=== PATIENT | female | born 1960 | race African-American/Black ===

== ENCOUNTER 2017-10-09 08:39 | Emergency (ER) | payer MEDICAID ==
[2017-10-09] MEDS ORDERED: ASPIRIN 81 MG TABLET, CHEWABLE PO ONE (09:32)
[2017-10-09 09:57] LABS: ABSOLUTE MONOCYTES (AUTO) 0.7 10^3/uL (0.1-1.4); ABSOLUTE NEUT (AUTO) 7.3 10^3/uL (1.7-8.2); BASOPHILS % (AUTO) 0.4 % (0-2); EOSINOPHILS % (AUTO) 0.3 % (0-6); HEMATOCRIT 45.3 % (36.0-47.0); HEMOGLOBIN 15.6 g/dL (12.0-15.5); LYMPHOCYTES % (AUTO) 20.3 % (13-45); MEAN CORPUSCULAR HEMOGLOBIN 32.5 pg (27.0-33.4); MEAN CORPUSCULAR HGB CONC 34.5 g/dL (32.0-36.0); MEAN CORPUSCULAR VOLUME 94 fl (80-97); MONOCYTES % (AUTO) 6.6 % (3-13); PLATELET COUNT 416 10^3/uL (150-450); RED CELL DISTRIBUTION WIDTH 14.3 % (11.5-14.0); SEGMENTED NEUTROPHILS % (AUTO) 72.4 % (42-78); TOTAL CELLS COUNTED % (AUTO) 100 %; WHITE BLOOD COUNT 10.1 10^3/uL (4.0-10.5)
[2017-10-09 10:00] LABS: ALANINE AMINOTRANSFERASE 33 U/L (9-52); ALKALINE PHOSPHATASE 120 U/L (38-126); ASPARTATE AMINO TRANSFERASE 37 U/L (14-36); BILIRUBIN,DIRECT 0.5 mg/dL (0.0-0.4); BILIRUBIN,TOTAL 0.6 mg/dL (0.2-1.3); BLOOD UREA NITROGEN 21 mg/dL (7-20); CALCIUM 10.6 mg/dL (8.4-10.2); CHLORIDE 99 mmol/L (98-107); CREATINE KINASE 118 U/L (30-135); GLUCOSE 81 mg/dL (75-110); POTASSIUM 4.7 mmol/L (3.6-5.0)
[2017-10-09 10:12] LABS: CREATINE KINASE MB 1.53 ng/mL (<4.55)
[2017-10-09 10:13] LABS: ANION GAP 19 (5-19); CARBON DIOXIDE 21 mmol/L (22-30); SODIUM 138.6 mmol/L (137-145)
--- NOTE | 2017-10-09 10:13 | RADIOLOGY REPORT (SQ) ---
EXAM DESCRIPTION: CHEST SINGLE VIEW COMPLETED DATE/TIME: 10/09/2017 9:55 am REASON FOR STUDY: Chest pain COMPARISON: None. EXAM PARAMETERS: NUMBER OF VIEWS: One view. TECHNIQUE: Single frontal radiographic view of the chest acquired. RADIATION DOSE: NA LIMITATIONS: None. FINDINGS: LUNGS AND PLEURA: No opacities, masses or pneumothorax. No pleural effusion. MEDIASTINUM AND HILAR STRUCTURES: No masses. Contour normal. HEART AND VASCULAR STRUCTURES: Heart normal in size. Normal vasculature. BONES: No acute findings. HARDWARE: None in the chest. OTHER: No other significant finding. IMPRESSION: NO ACUTE RADIOGRAPHIC FINDING IN THE CHEST. TECHNICAL DOCUMENTATION: JOB ID: [id number]- All Rights Reserved Reading location - IP/workstation name: [email or web address]
[2017-10-09 10:14] LABS: TROPONIN I < 0.012 ng/mL
--- NOTE | 2017-10-09 11:16 | ER Document Report ---
ED General - General Chief Complaint: Chest Pain Stated Complaint: CHEST PAIN Time Seen by Provider: 10/09/17 09:31 Mode of Arrival: Ambulatory Information source: Patient Notes: History of complain-56 years old female with a history of bipolar disorder presents today with pain over the right side of the neck left side of the upper chest wall and left lower sternocostal region. Been out for the last 2 days got worse this morning. No diaphoresis. Denies any palpitation. Denies any nausea vomiting left arm numbness or tingling sensation. Denies any constitutional symptoms REVIEW OF SYSTEMS: CONSTITUTIONAL : Denies fever, chills, or sweats. Denies recent illness. EENT: Denies eye, ear, throat, or mouth pain or symptoms. Denies nasal or sinus congestion or discharge. Denies throat, tongue, or mouth swelling or difficulty swallowing. CARDIOVASCULAR: . Denies palpitations or racing or irregular heart beat. Denies ankle edema. RESPIRATORY: Denies cough, cold, or chest congestion. Denies shortness of breath, difficulty breathing, or wheezing. GASTROINTESTINAL: Denies abdominal pain or distention. Denies nausea, vomiting , or diarrhea. Denies blood in vomitus, stools, or per rectum. Denies black, tarry stools. Denies constipation. GENITOURINARY: Denies difficulty urinating, painful urination, burning, frequency, blood in urine, or discharge. FEMALE GENITOURINARY: Denies vaginal bleeding, heavy or abnormal periods, irregular periods. Denies vaginal discharge or odor. MUSCULOSKELETAL: Denies back or neck pain or stiffness. Denies joint pain or swelling. SKIN: Denies rash, lesions or sores. HEMATOLOGIC : Denies easy bruising or bleeding. LYMPHATIC: Denies swollen, enlarged glands. NEUROLOGICAL: Denies confusion or altered mental status. Denies passing out or loss of consciousness. Denies dizziness or lightheadedness. Denies headache. Denies weakness or paralysis or loss of use of either side. Denies problems with gait or speech. Denies sensory loss, numbness, or tingling. Denies seizures. PSYCHIATRIC: Denies anxiety or stress. Denies depression, suicidal ideation, or homicidal ideation. ALL OTHER SYSTEMS REVIEWED AND NEGATIVE. PHYSICAL EXAMINATION: GENERAL: Well-appearing, well-nourished and in no acute distress. Appears anxious HEAD: Atraumatic, normocephalic. EYES: Pupils equal round and reactive to light, extraocular movements intact, conjunctiva are normal. ENT: Nares patent, oropharynx clear without exudates. Moist mucous membranes. NECK: Normal range of motion, supple without lymphadenopathy Right paraspinal muscular tenderness noted. LUNGS: Breath sounds clear to auscultation bilaterally and equal. No wheezes rales or rhonchi. HEART: Regular rate and rhythm without murmurs Chest wall-sharp chest wall tenderness noted over the sternocostal region ABDOMEN: Soft, nontender, nondistended abdomen. No guarding, no rebound. No masses appreciated. Female : deferred Musculoskeletal: Normal range of motion, no pitting or edema. No cyanosis. NEUROLOGICAL: Cranial nerves grossly intact. Normal speech, normal gait. Normal sensory, motor exams PSYCH: Normal mood, normal affect. SKIN: Warm, Dry, normal turgor, no rashes or lesions noted. Dictation was performed using [email or web address] voice recognition software TRAVEL OUTSIDE OF THE [place] IN LAST 30 DAYS: No - HPI Onset: Just prior to arrival - Related Data Allergies/Adverse Reactions: No Known Allergies Allergy (Unverified 10/09/17 08:54) Past Medical History - General Information source: Patient - Social History Smoking Status: Current Every Day Smoker Chew tobacco use (# tins/day): No Frequency of alcohol use: Occasional Lives with: Family Family History: Reviewed & Not Pertinent Patient has suicidal ideation: No Patient has homicidal ideation: No - Past Medical History Cardiac Medical History: Denies: None, Hx Atrial Fibrillation, Hx Congestive Heart Failure, Hx Coronary Artery Disease, Hx DVT, Hx Heart Attack, Hx Hypercholesterolemia, Hx Hypertension, Hx Peripheral Vascular Disease, Hx Pulmonary Embolism, Hx Heart Murmur, Other Pulmonary Medical History: Denies: None, Hx Asthma, Hx Bronchitis, Hx COPD, Hx Pneumonia, Hx Intubation , Hx Respiratory Failure, Hx Sleep Apnea, Hx Tuberculosis, Other Neurological Medical History: Denies: None, Hx Cerebrovascular Accident, Hx Migraine, Hx Seizures, Other Renal/ Medical History: Denies: Hx Peritoneal Dialysis Musculoskeltal Medical History: Reports Hx Arthritis Psychiatric Medical History: Reports: Hx Bipolar Disorder Review of Systems - Review of Systems Constitutional: denies: No symptoms reported, See HPI, Chills, Diaphoresis, Fever, Malaise, Weakness, Other, Weight gain, Weight loss, Recent illness EENT: denies: No symptoms reported, See HPI, Eye pain, Eye discharge, Blurred vision, Tearing, Double vision, Ear pain, Ear discharge, Nose pain, Nose congestion, Nose discharge, Sinus pressure, Sinus discharge, Throat pain, Difficulty swallowing, Throat swelling, Mouth pain, Mouth swelling, Dental problem, Vertigo, Other Cardiovascular: See HPI Respiratory: denies: No symptoms reported, See HPI, Cough, Hurts to breathe, Hemoptysis, Short of breath, Sputum, Stridor, Wheezing, Other Gastrointestinal: denies: No symptoms reported, See HPI, Abdomen distended, Abdominal pain, Diarrhea, Nausea, Vomiting, Constipation, Blood streaked bowels , Poor appetite, Poor fluid intake, Blood in vomit, Black stools, Rectal bleeding, Last bowel movement, Fecal incontinence, Other Genitourinary: denies: No symptoms reported, See HPI, Burning, Dysuria, Discharge, Frequency, Flank pain, Hematuria, Incontinence, Pain, Urgency, Retention, Other Female Genitourinary: denies: No symptoms reported, See HPI, Last menstrual period, , Post menopausal, Heavy/abnormal periods, Irregular period, Vaginal bleeding, Vaginal discharge, Vaginal odor, Painful intercourse, Other Musculoskeletal: See HPI Skin: denies: No symptoms reported, See HPI, Change in color, Change in hair/ nails, Dryness, Lesions, Lumps, Rash, Other Neurological/Psychological: denies: No symptoms reported, See HPI, Confusion, Dementia, Depression, Hallucinations, Anxiety, Homicidal ideation, Sensory change, Weakness, Gait changes, Loss of power, Paralysis, Seizure, Lost consciousness, Headaches, Speech impairment, Numbness, Suicidal ideation, Tingling, Tremor, Other Physical Exam - Vital signs Vitals: Temp Pulse Resp BP Pulse Ox 98.1 F 94 20 121/78 97 10/09/17 08:43 10/09/17 08:43 10/09/17 08:43 10/09/17 08:43 10/09/17 08:43 Course - Vital Signs Vital signs: Temp Pulse Resp BP Pulse Ox 98.1 F 94 20 121/78 98 10/09/17 08:43 10/09/17 08:43 10/09/17 08:43 10/09/17 08:43 10/09/17 09:32 - Laboratory Result Diagrams: 10/09/17 09:05 10/09/17 09:05 Laboratory results interpreted by me: 10/09/17 10/09/17 09:05 09:05 Hgb 15.6 H RDW 14.3 H Carbon Dioxide 21 L BUN 21 H Calcium 10.6 H Direct Bilirubin 0.5 H AST 37 H Total Protein 9.0 H - Diagnostic Test Radiology results interpreted by me: 10/09/17 11:16 Chest x-ray reported by radiologist as normal no acute finding - EKG Interpretation by Me EKG shows normal: Sinus rhythm Rate: Normal Rhythm: NSR Discharge - Discharge Clinical Impression: Chest wall pain, Bipolar disorder Strain of sternocleidomastoid muscle Qualifiers: Encounter type: initial encounter Qualified Code(s): S16.1XXA - Strain of muscle, fascia and tendon at neck level, initial encounter Condition: Fair Disposition: HOME, SELF-CARE Instructions: Chest Pain of Unclear Cause ([facility]), Chest Wall Pain ([facility]) Prescriptions: Hydrocodone/Acetaminophen [Vicodin 5-300 mg Tablet] 1 each PO Q6HP PRN #14 tablet PRN Reason:
[2017-10-09 11:38] VITALS: BP 109/82
--- NOTE | 2017-10-09 12:53 | EKG REPORT ---
SEVERITY:- NORMAL ECG - SINUS RHYTHM : Confirmed by: Erasmo Maldonado MD 09-Oct-2017 12:52:58
--- NOTE | 2017-10-09 12:54 | EKG REPORT ---
SEVERITY:- ABNORMAL ECG - SINUS RHYTHM ST ELEVATION LIKELY NORMAL VARIANT, CLINICAL CORRELATION NEEDED. : Confirmed by: Erasmo Maldonado MD 09-Oct-2017 12:53:30
== END 2017-10-09 11:39 | disposition home or self-care (01) ==
LOC: ER 08:39
DX: S16.1XXA Strain of muscle, fascia and tendon at neck level, initial encounter (principal); X58.XXXA Exposure to other specified factors, initial encounter; R07.89 Other chest pain; M54.2 Cervicalgia; F17.200 Nicotine dependence, unspecified, uncomplicated; F31.9 Bipolar disorder, unspecified
CPT/HCPCS: 36415; 71045; 80053; 82550; 82553; 84484; 85025; 93005; 93010; 99285

== ENCOUNTER 2017-12-08 18:26 | Emergency (ER) | payer MEDICAID | END 2017-12-08 18:35 | disposition left against medical advice (07) | LOC: ER 18:26 | DX: Z53.21 Procedure and treatment not carried out due to patient leaving prior to being seen by health care provider (principal) ==

== ENCOUNTER 2017-12-20 08:28 | Emergency (ER) | payer MEDICAID ==
[2017-12-20] MEDS ORDERED: DIPHENHYDRAMINE HCL 50 MG CAPSULE PO ONE (10:19)
[2017-12-20] MEDS ORDERED: METOCLOPRAMIDE HCL 10 MG TABLET PO ONE (10:19)
[2017-12-20] MEDS ORDERED: KETOROLAC TROMETHAMINE 60 MG/2 ML SDV IM ONE (10:19)
--- NOTE | 2017-12-20 10:23 | ER Document Report ---
ED General - General Chief Complaint: Headache Stated Complaint: HEADACHE Mode of Arrival: Ambulatory Information source: Patient Notes: 57-year-old female with schizophrenia presents with complaint of left-sided neck pain, headache and rash around her eyes. Patient states that she awoke this morning with her headache that she describes as a throbbing pain. She states that her neck also began hurting today and describes it as a sharp pain without radiation. She denies any injury. Patient noticed some mild erythema under her left eye that she describes as itching. She denies any new lotions or makeup. She denies any recent illness. TRAVEL OUTSIDE OF THE [place] IN LAST 30 DAYS: No - HPI Onset: This morning Onset/Duration: Gradual, Persistent Quality of pain: Stabbing, Throbbing Severity: Mild Associated symptoms: None Exacerbated by: Movement Relieved by: Remaining still Similar symptoms previously: No Recently seen / treated by doctor: No - Related Data Allergies/Adverse Reactions: No Known Allergies Allergy (Verified 12/20/17 08:30) Past Medical History - General Information source: Patient, [facility] Records - Social History Smoking Status: Current Every Day Smoker Cigarette use (# per day): Yes - 15 Chew tobacco use (# tins/day): No Smoking Education Provided: Yes - Patient counselled regarding cessation for 4 minutes Frequency of alcohol use: None Drug Abuse: None Lives with: Spouse/Significant other Family History: Reviewed & Not Pertinent Patient has suicidal ideation: No Patient has homicidal ideation: No - Past Medical History Cardiac Medical History: Denies: Hx Atrial Fibrillation, Hx Congestive Heart Failure, Hx Coronary Artery Disease, Hx DVT, Hx Heart Attack, Hx Hypercholesterolemia, Hx Hypertension, Hx Peripheral Vascular Disease, Hx Pulmonary Embolism, Hx Heart Murmur Pulmonary Medical History: Denies: Hx Asthma, Hx Bronchitis, Hx COPD, Hx Pneumonia, Hx Intubation, Hx Respiratory Failure, Hx Sleep Apnea, Hx Tuberculosis Neurological Medical History: Denies: Hx Cerebrovascular Accident, Hx Migraine, Hx Seizures Renal/ Medical History: Denies: Hx Peritoneal Dialysis Musculoskeltal Medical History: Reports Hx Arthritis Psychiatric Medical History: Reports: Hx Bipolar Disorder Past Surgical History: Reports: Hx Section Review of Systems - Review of Systems Notes: REVIEW OF SYSTEMS: CONSTITUTIONAL : Denies fever, chills, or sweats. Denies recent illness. Denies weight loss, recent hospitalizations. EENT: Denies visual changes, eye pain. Denies nasal or sinus congestion or discharge. Denies sore throat, oral lesions, difficulty swallowing. CARDIOVASCULAR: Denies chest pain. Denies palpitations. Denies lower extremity edema. RESPIRATORY: Denies cough, cold, or chest congestion. Denies shortness of breath, wheezing. GASTROINTESTINAL: Denies abdominal pain or distention. Denies nausea, vomiting , or diarrhea. Denies blood in vomitus, stools, or per rectum. Denies black, tarry stools. Denies constipation. GENITOURINARY: Denies difficulty urinating, painful urination, frequency, blood in urine, or vaginal discharge. MUSCULOSKELETAL: Denies back pain or stiffness. Denies joint pain or swelling. SKIN: Denies lesions or sores. HEMATOLOGIC : Denies easy bruising or bleeding. LYMPHATIC: Denies swollen glands. NEUROLOGICAL: Denies confusion or altered mental status. Denies passing out or loss of consciousness. Denies dizziness or lightheadedness. Denies weakness or paralysis. Denies problems difficulty with ambulation, slurred speech. Denies sensory loss, numbness, or tingling. Denies seizures. PSYCHIATRIC: Denies anxiety or stress. Denies depression, suicidal ideation, or homicidal ideation. Denies visual or auditory hallucinations. Physical Exam - Vital signs Vitals: Temp Pulse Resp BP Pulse Ox 98.9 F 74 16 117/79 97 12/20/17 08:44 12/20/17 08:44 12/20/17 08:44 12/20/17 08:44 12/20/17 08:44 - Notes Notes: PHYSICAL EXAMINATION: GENERAL: Well-appearing, well-nourished and in no acute distress. HEAD: Atraumatic, normocephalic. EYES: Pupils equal round and reactive to light, extraocular movements intact, conjunctiva are normal. No pain with extraocular movements. Mild erythema under the left eyelid. ENT: Nares patent, oropharynx clear without exudates. Moist mucous membranes. NECK: Normal range of motion, supple without lymphadenopathy LUNGS: Breath sounds clear to auscultation bilaterally and equal. No wheezes rales or rhonchi. HEART: Regular rate and rhythm without murmurs ABDOMEN: Soft, nontender, nondistended abdomen. No guarding, no rebound. No masses appreciated. Female : deferred Musculoskeletal: Normal range of motion, no pitting or edema. No cyanosis. Tender to palpation along the left paraspinal musculature of the cervical spine. Increased muscle tonicity along the left trapezius. NEUROLOGICAL: Cranial nerves grossly intact. Normal speech, normal gait. Normal sensory, motor exams PSYCH: Normal mood, normal affect. SKIN: Warm, Dry, mild erythema under the left eyelid. Nontender. Course - Re-evaluation Re-evalutation: 12/20/17 10:27 57-year-old female presents with complaint of neck pain, headache and a rash under her left eye that she noticed this morning. Upon arrival vitals were reviewed. Patient does not appear toxic or dehydrated. She is in no acute distress. Exam is significant for mild erythema under the left eye that is not consistent with facial cellulitis. She also has some pain along the left trapezius and left paraspinal musculature of the cervical spine. Patient declining IV. Patient was given Reglan, Benadryl and Toradol during her ED course. She will be discharged home with Motrin and Flexeril. Patient provided the opportunity to ask questions, and express concerns. Discharge instructions discussed. Patient is agreeable with discharge home. Return indications explained and discussed with the patient who displays understanding. Patient encouraged to return to the emergency department immediately with any concerns. - Vital Signs Vital signs: Temp Pulse Resp BP Pulse Ox 98.9 F 74 16 117/79 97 12/20/17 08:44 12/20/17 09:00 12/20/17 09:00 12/20/17 09:00 12/20/17 09:00 Discharge - Discharge Clinical Impression: Rash and nonspecific skin eruption Headache Qualifiers: Headache type: unspecified Headache chronicity pattern: acute headache Intractability: not intractable Qualified Code(s): R51 - Headache Cervical strain, acute Qualifiers: Encounter type: initial encounter Qualified Code(s): S16.1XXA - Strain of muscle, fascia and tendon at neck level, initial encounter Condition: Good Disposition: HOME, SELF-CARE Instructions: Antinausea Medication ([facility]), Headache ([facility]), Neck Injury ( Cervical Strain) ([facility]), Pain Medication Injection ([facility]), Toradol Injection ([facility]) Additional Instructions: Follow up with your physician tomorrow for further care or return to the ED IMMEDIATELY if symptoms worsen or new concerns occur. If you cannot afford to follow up with your primary care physician a list of low cost clinics have been provided at the end of your discharge papers as well. Prescriptions: Ibuprofen [Motrin 600 mg Tablet] 600 mg PO Q8HP PRN #21 tablet PRN Reason: Cyclobenzaprine HCl [Flexeril 10 mg Tablet] 10 mg PO TIDP PRN #15 tab PRN Reason:
[2017-12-20 10:32] VITALS: BP 132/91
== END 2017-12-20 10:38 | disposition home or self-care (01) ==
LOC: ER 08:28
DX: R51 Headache (principal); S16.1XXA Strain of muscle, fascia and tendon at neck level, initial encounter; X58.XXXA Exposure to other specified factors, initial encounter; M54.2 Cervicalgia; R21 Rash and other nonspecific skin eruption; L29.8 Other pruritus; F17.210 Nicotine dependence, cigarettes, uncomplicated; Z71.6 Tobacco abuse counseling
CPT/HCPCS: 99406; 99284; 96372; J3490 ×2; J1885

== ENCOUNTER 2018-06-04 09:32 | Emergency (ER) | payer MEDICAID ==
[2018-06-04 09:39] VITALS: BP 124/82
--- NOTE | 2018-06-04 10:23 | ER Document Report ---
Addendum entered and electronically signed by GABE GARCIA NP 06/04/18 11:42: Course - Re-evaluation Re-evalutation: 06/04/18 11:41 Patient is concerned that she still needs an oral antibiotic, consulted with Dr. Mike Callejas who agrees to examined patient. Dr. Callejas to bedside, does not recommend any oral antibiotics at this time. Agrees with discharge plan of care. - Vital Signs Vital signs: Temp Pulse Resp BP Pulse Ox 98.5 F 76 16 124/82 99 06/04/18 09:38 06/04/18 09:38 06/04/18 09:38 06/04/18 09:38 06/04/18 09:38 Original Note: ED Breast Problem - General Chief Complaint: Breast Problem Stated Complaint: BREAST PAIN Time Seen by Provider: 06/04/18 10:08 Mode of Arrival: Ambulatory Information source: Patient Notes: Patient presents complaining of nipple tingling and discomfort to bilateral breast for the past 3 days. Patient does complain of some discomfort to the nipple area. Patient denies any trauma or fever. Patient denies any nipple discharge. Patient denies any previous history of breast cancer. Last mammogram was 2 years ago. Patient denies any cough or chest pain. TRAVEL OUTSIDE OF THE [place] IN LAST 30 DAYS: No - HPI Patient complains to provider of: Tenderness, Other - Tingling sensation to nipples Onset: Other - 3 days Onset/Duration: Persistent Quality of pain: Other - Tingling Pain Level: 2 Associated Symptoms: denies: Chest pain, Chills, Nonproductive cough, Productive cough, Fever, Headache, Nausea, Vomiting, Sweating Similar symptoms previously: Yes - 1 year ago Recently seen / treated by doctor: No - Related Data Allergies/Adverse Reactions: No Known Allergies Allergy (Verified 06/04/18 09:35) Past Medical History - General Information source: Patient - Social History Smoking Status: Current Every Day Smoker Smoking Education Provided: Yes Frequency of alcohol use: None Drug Abuse: None Occupation: none Lives with: Family Family History: Reviewed & Not Pertinent Renal/ Medical History: Denies: Hx Peritoneal Dialysis Musculoskeletal Medical History: Reports Hx Arthritis Psychiatric Medical History: Reports: Hx Bipolar Disorder Past Surgical History: Reports: Hx Section Review of Systems - Review of Systems Constitutional: No symptoms reported. denies: Fever, Recent illness EENT: No symptoms reported Cardiovascular: No symptoms reported Respiratory: No symptoms reported Gastrointestinal: No symptoms reported Genitourinary: No symptoms reported Female Genitourinary: No symptoms reported Musculoskeletal: No symptoms reported Skin: Other - Tingling sensation to bilateral nipples Hematologic/Lymphatic: No symptoms reported Neurological/Psychological: No symptoms reported Physical Exam - Vital signs Vitals: Temp Pulse Resp BP Pulse Ox 98.5 F 76 16 124/82 99 06/04/18 09:38 06/04/18 09:38 06/04/18 09:38 06/04/18 09:38 06/04/18 09:38 - General General appearance: Appears well, Alert General appearance pediatric: Attentiveness normal In distress: None - HEENT Head: Normocephalic, Atraumatic Eyes: Normal Conjunctiva: Normal Nasal: Normal Mouth/Lips: Normal Mucous membranes: Normal Neck: Normal, Supple. No: Lymphadenopathy - Respiratory Respiratory status: No respiratory distress Chest status: Nontender Breath sounds: Normal. No: Rales, Rhonchi, Stridor, Wheezing Chest palpation: Normal - Cardiovascular Rhythm: Regular Heart sounds: S1 appreciated, S2 appreciated Murmur: No Notes: Bilateral breast examination performed. Patient with normal skin color and contour to breast bilaterally, no concern for abscess, no drainage from the nipple noted. No significant epitrochlear, supraclavicular or axillary lymphadenopathy. No obvious masses. - Back Back: Normal, Nontender. No: CVA tenderness - Extremities General upper extremity: Normal inspection, Normal strength General lower extremity: Normal inspection, Normal strength - Neurological Neuro grossly intact: Yes Cognition: Normal [place] Coma Scale Eye Opening: Spontaneous Stefan Coma Scale Verbal: Oriented Stefan Coma Scale Motor: Obeys Commands - Psychological Associated symptoms: Normal affect, Normal mood - Skin Skin Temperature: Warm Skin Moisture: Dry Skin Color: Erythema - Mild erythema along inframammary crease to left breast with superficial skin tear, no induration, no concern for abscess Irregularity with: negative: Swelling, Tenderness Course - Re-evaluation Re-evalutation: 06/04/18 10:20 Patient with very superficial skin tear to the left inframammary crease with mild erythema. No concern for abscess. Patient denies use of underwire bras. Patient encouraged to follow-up with her primary doctor for outpatient mammogram for further evaluation. - Vital Signs Vital signs: Temp Pulse Resp BP Pulse Ox 98.5 F 76 16 124/82 99 06/04/18 09:38 06/04/18 09:38 06/04/18 09:38 06/04/18 09:38 06/04/18 09:38 Discharge - Discharge Clinical Impression: altered nipple sensation, Intertrigo Condition: Stable Disposition: HOME, SELF-CARE Instructions: Topical Antifungal ([facility]) Additional Instructions: Return immediately for any new or worsening symptoms Followup with your primary care provider, call tomorrow to make a followup appointment Follow-up with a primary doctor so that she can get scheduled for an outpatient mammogram for further evaluation Keep skin under breasts clean and dry as much as possible Prescriptions: Ketoconazole [Nizoral] 1 applic TP DAILY #30 cream.gm. Forms: Smoking Cessation Education Referrals: [facility] [Provider Group] - Follow up as needed
--- NOTE | 2018-06-05 11:31 | ER Document Report ---
Doctor's Note Notes: I personally and independently obtained patient history and examined the patient in conjunction with the APC and agree with the assessment, treatment plan and disposition of the patient as recorded by the APC, and have reviewed the APC's note. HISTORY OF PRESENT ILLNESS: Patient is a 57-year-old female that presents to the emergency department for chief complaint of breast pain. Patient states she has tingling in her nipples bilateral, is concerned she may be developing an infection, denies any redness or swelling. ROS: Constitutional: Negative for fever. Cardiovascular: Negative for chest pain. Respiratory: Negative for shortness of breath. Gastrointestinal: Negative for vomiting or abdominal pain Musculoskeletal: Negative for arm, leg or back pain Skin: Negative for rash. Neurological: Negative for weakness or numbness. Other than noted above, the 12 point review of systems was reviewed with the patient and were negative, all pertinent findings are included in the HPI. PHYSICAL EXAMINATION: Vital signs reviewed, nursing noted reviewed. GENERAL: Well-appearing, well-nourished and in no acute distress. HEAD: Atraumatic, normocephalic. EYES: Eyes appear normal, conjunctiva are normal. ENT: nares patent, oropharynx clear without exudates. Moist mucous membranes. NECK: Normal range of motion, supple without lymphadenopathy LUNGS: Breath sounds clear to auscultation bilaterally and equal. No wheezes rales or rhonchi. HEART: Regular rate and rhythm without murmurs Breast exam: Patient educated on exam, with training engineer present, patient's breasts are examined, in all quadrants, without notation of any masses, tenderness, erythema. There is no discharge at the nipples, unremarkable breast exam bilaterally. ABDOMEN: Soft, nontender, normoactive bowel sounds. No rebound, guarding, or rigidity. No masses appreciated. EXTREMITIES: Nontender, good range of motion, no pitting or edema. NEUROLOGICAL: No focal neurological deficits. Moves all extremities spontaneously Motor and sensory grossly intact on exam. PSYCH: Normal mood, normal affect. SKIN: Warm, Dry, normal turgor, noted is a mild yeast infection, under the left breast MEDICAL DECISION MAKING: Patient's exam was benign for me with the exception of a mild yeast infection under the left breast, otherwise negative, no evidence of cellulitis or mastitis. Recommended topical treatments, and discharged to follow-up. Please review detail APC documentation. *Note is created using voice recognition software and may contain spelling, syntax or grammatical errors. I personally and independently obtained patient history and examined the patient in conjunction with the APC and agree with the assessment, treatment plan and disposition of the patient as recorded by the APC, and have reviewed the APC's note.
== END 2018-06-04 13:00 | disposition home or self-care (01) ==
LOC: ER 09:32
DX: R20.2 Paresthesia of skin (principal); L30.4 Erythema intertrigo; S21.012A Laceration without foreign body of left breast, initial encounter; X58.XXXA Exposure to other specified factors, initial encounter; F17.200 Nicotine dependence, unspecified, uncomplicated
CPT/HCPCS: 99283

== ENCOUNTER 2018-10-29 11:51 | Emergency (ER) | payer MEDICAID ==
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
[2018-10-29 14:59] VITALS: BP 163/98
== END 2018-10-29 15:26 | disposition home or self-care (01) ==
LOC: ER 11:51
DX: S02.2XXA Fracture of nasal bones, initial encounter for closed fracture (principal); R51 Headache; R42 Dizziness and giddiness; Y04.0XXA Assault by unarmed brawl or fight, initial encounter; F17.210 Nicotine dependence, cigarettes, uncomplicated
CPT/HCPCS: 70450; 99283; 99406

== ENCOUNTER 2019-01-12 07:47 | Emergency (ER) | payer MEDICAID ==
--- NOTE | 2019-01-12 08:41 | ER Document Report ---
ED General - General Chief Complaint: Headache >24 hrs old Stated Complaint: LIGHT HEADED Time Seen by Provider: 01/12/19 08:20 Primary Care Provider: GET TRAN DO [Primary Care Provider] - Follow up in 1 week Mode of Arrival: Ambulatory Information source: Patient Notes: This 58-year-old female presents emergency department today with complaints of left frontal headache with some dizziness and lightheadedness. Reports she woke up with the symptoms. Denies fever nausea vomiting diarrhea. Denies trauma. Reports she has some chills. Reports her left eye feels like it has pressure and it. Reports light bothers her eye, pt is wearing sunglasses. She did take some Naprosyn without relief of symptoms. Patient also reports she took her mental health medications for bipolar anxiety and schizophrenia without relief of symptoms also. Patient also reports that her speech is off. Patient is speaking in a clear tone, full sentences, she reports she normally speaks faster. Male at the bedside agreed with patient, reports she is speaking slower. TRAVEL OUTSIDE OF THE [place] IN LAST 30 DAYS: No - HPI Onset: This morning Onset/Duration: Sudden Quality of pain: Pressure Associated symptoms: Chills, Headache Exacerbated by: Other - light Relieved by: Denies Similar symptoms previously: Yes Recently seen / treated by doctor: No - Related Data Allergies/Adverse Reactions: No Known Allergies Allergy (Verified 01/12/19 07:49) Past Medical History - General Information source: Patient Last Menstrual Period: menopause - Social History Smoking Status: Current Every Day Smoker Cigarette use (# per day): Yes Frequency of alcohol use: None Drug Abuse: None Family History: Reviewed & Not Pertinent Patient has suicidal ideation: No Patient has homicidal ideation: No - Past Medical History Cardiac Medical History: Denies: Hx Atrial Fibrillation, Hx Congestive Heart Failure, Hx Coronary Artery Disease, Hx DVT, Hx Heart Attack, Hx Hypercholesterolemia, Hx Hypertension, Hx Peripheral Vascular Disease, Hx Pulmonary Embolism, Hx Heart Murmur Pulmonary Medical History: Denies: Hx Asthma, Hx Bronchitis, Hx COPD, Hx Pneumonia, Hx Intubation, Hx Respiratory Failure, Hx Sleep Apnea, Hx Tuberculosis Neurological Medical History: Denies: Hx Cerebrovascular Accident, Hx Migraine, Hx Seizures Renal/ Medical History: Denies: Hx Peritoneal Dialysis Musculoskeletal Medical History: Reports Hx Arthritis Psychiatric Medical History: Reports: Hx Anxiety, Hx Bipolar Disorder, Hx Schizophrenia Past Surgical History: Reports: Hx Section Review of Systems - Review of Systems Notes: Review HPI for review of systems., All other systems negative Physical Exam - Vital signs Vitals: Temp Pulse Resp BP Pulse Ox 98.3 F 72 16 113/56 L 97 01/12/19 07:54 01/12/19 07:54 01/12/19 07:54 01/12/19 07:54 01/12/19 07:54 - General General appearance: Appears well, Alert In distress: None - HEENT Head: Normocephalic, Atraumatic Eyes: Normal Conjunctiva: Normal Extraocular movements intact: Yes Pupils: PERRL Ears: Normal External canal: Normal Tympanic membrane: Normal Mouth/Lips: Normal Mucous membranes: Normal Pharynx: Normal Neck: Normal, Supple. No: Lymphadenopathy - Respiratory Respiratory status: No respiratory distress Chest status: Nontender Breath sounds: Normal - Cardiovascular Rhythm: Regular Heart sounds: Normal auscultation - Abdominal Inspection: Normal Distension: No distension Bowel sounds: Normal Tenderness: Nontender Organomegaly: No organomegaly - Back Back: Normal - Extremities General upper extremity: Normal color, Normal strength General lower extremity: Normal color, Normal strength - Neurological Neuro grossly intact: Yes Cognition: Normal Orientation: AAOx4 Stefan Coma Scale Eye Opening: Spontaneous Stefan Coma Scale Verbal: Oriented Stefan Coma Scale Motor: Obeys Commands Stefan Coma Scale Total: 15 Speech: Normal Cranial nerves: Normal Cerebellar coordination: Normal Motor strength normal: LUE, RUE, LLE, RLE - Psychological Associated symptoms: Normal affect, Normal mood - Skin Skin Temperature: Warm Skin Moisture: Dry Skin Color: Normal Course - Re-evaluation Re-evalutation: 01/12/19 09:[address] 01/12/19 08:33 IMPRESSION: NORMAL BRAIN CT WITHOUT CONTRAST. EVIDENCE OF ACUTE STROKE: NO. 01/12/19 09:50 CT normal no evidence of acute stroke. Still waiting on labs to be drawn by lab. Patient instructed on Toradol and Benadryl for headache. She verbalized understanding. 01/12/19 10:38 Lab notified us that the urine that was sent down was basically water. Patient was informed of need for urinalysis. Patient reports she is feeling much better after Toradol and Benadryl. 01/12/19 11:[address] negative for an acute stroke, patient reports she feels much better. Reports occasionally she feels dizzy upon standing. She was instructed on all labs. Patient is having a hot flash. Reports she has hot flashes constantly on and off all day long. Patient reports she will follow-up with Dr. Tran within 1 week. 01/12/19 10:29 01/12/19 10:29 MCV 95 fl (80-97) 01/12/19 10:29 MCH 32.5 pg (27.0-33.4) 01/12/19 10:29 MCHC 34.2 g/dL (32.0-36.0) 01/12/19 10:29 RDW 14.2 % (11.5-14.0) H 01/12/19 10:29 Seg Neutrophils % 59.6 % (42-78) 01/12/19 10:29 Lymphocytes % 32.5 % (13-45) 01/12/19 10:29 Monocytes % 6.5 % (3-13) 01/12/19 10:29 Eosinophils % 1.0 % (0-6) 01/12/19 10:29 Basophils % 0.4 % (0-2) 01/12/19 10:29 Absolute Neutrophils 5.3 10^3/uL (1.7-8.2) 01/12/19 10:29 Absolute Lymphocytes 2.9 10^3/uL (0.5-4.7) 01/12/19 10:29 Absolute Monocytes 0.6 10^3/uL (0.1-1.4) 01/12/19 10:29 Absolute Eosinophils 0.1 10^3/uL (0.0-0.6) 01/12/19 10:29 Absolute Basophils 0.0 10^3/uL (0.0-0.2) 01/12/19 10:29 Chloride 106 mmol/L (98-107) 01/12/19 10:29 Carbon Dioxide 26 mmol/L (22-30) 01/12/19 10:29 Anion Gap 8 (5-19) 01/12/19 10:29 Est GFR ( Amer) > 60 (>60) 01/12/19 10:29 Est GFR (Non-Af Amer) > 60 (>60) 01/12/19 10:29 Glucose 89 mg/dL (75-110) 01/12/19 10:29 Calcium 10.4 mg/dL (8.4-10.2) H 01/12/19 10:29 Total Bilirubin 0.6 mg/dL (0.2-1.3) 01/12/19 10:29 AST 36 U/L (14-36) 01/12/19 10:29 ALT 19 U/L (9-52) 01/12/19 10:29 Alkaline Phosphatase 98 U/L (38-126) 01/12/19 10:29 Total Protein 8.3 g/dL (6.3-8.2) H 01/12/19 10:29 Albumin 4.8 g/dL (3.5-5.0) 01/12/19 10:29 Urine Color YELLOW 01/12/19 10:30 Urine Appearance SLIGHTLY-CLOUDY 01/12/19 10:30 Urine pH 5.0 (5.0-9.0) 01/12/19 10:30 Ur Specific [place] 1.018 01/12/19 10:30 Urine Protein NEGATIVE mg/dL (NEGATIVE) 01/12/19 10:30 Urine Glucose (UA) NEGATIVE mg/dL (NEGATIVE) 01/12/19 10:30 Urine Ketones NEGATIVE mg/dL (NEGATIVE) 01/12/19 10:30 Urine Blood NEGATIVE (NEGATIVE) 01/12/19 10:30 Urine Nitrite NEGATIVE (NEGATIVE) 01/12/19 10:30 Ur Leukocyte Esterase MODERATE (NEGATIVE) H 01/12/19 10:30 Urine WBC (Auto) 15 /HPF 01/12/19 10:30 Urine RBC (Auto) 6 /HPF 01/12/19 10:30 - Vital Signs Vital signs: Temp Pulse Resp BP Pulse Ox 98.3 F 63 16 123/87 H 100 01/12/19 11:59 01/12/19 11:59 01/12/19 11:59 01/12/19 11:59 01/12/19 11:59 - Laboratory Result Diagrams: 01/12/19 10:29 01/12/19 10:29 Laboratory results interpreted by me: 01/12/19 01/12/19 01/12/19 10:29 10:29 10:30 RDW 14.2 H Calcium 10.4 H Total Protein 8.3 H Ur Leukocyte Esterase MODERATE H Urine Ascorbic Acid 40 H - Diagnostic Test Radiology reviewed: Image reviewed, Reports reviewed - EKG Interpretation by Me EKG shows normal: Sinus rhythm Rate: Normal Rhythm: NSR When compared to previous EKG there are: No significant change Additional EKG results interpreted by me: 01/12/19 09:[address] elevation inferior leads with no T waver inversion, same EKG from 10/09/17 Discharge - Discharge Clinical Impression: Dizziness Headache Qualifiers: Headache type: unspecified Headache chronicity pattern: unspecified pattern Intractability: not intractable Qualified Code(s): R51 - Headache Condition: Stable Disposition: HOME, SELF-CARE Instructions: Use of Diphenhydramine, Dizziness ([facility]), Headache ([facility]), Toradol Injection ([facility]) Additional Instructions: *You have been evaluated for Headache, dizziness, lightheaded *Take benadryl as indicated for your headache *Stand slowly, push fluids, stay well hydrated *Follow up with Dr Olivier within one week for a recheck *Return to ED for worsening condition, changes, needs Forms: Smoking Cessation Education Referrals: GET TRAN DO [Primary Care Provider] - Follow up in 1 week
--- NOTE | 2019-01-12 09:36 | RADIOLOGY REPORT (SQ) ---
EXAM DESCRIPTION: CT HEAD WITHOUT COMPLETED DATE/TIME: 01/12/2019 9:09 am REASON FOR STUDY: levi, altered speech COMPARISON: None. TECHNIQUE: Axial images acquired through the brain without intravenous contrast. Images reviewed wi th bone, brain and subdural windows. Images stored on PACS. All CT scanners at this facility use dose modulation, iterative reconstruction, and/or weight based d osing when appropriate to reduce radiation dose to as low as reasonably achievable (ALARA). [facility]: Dose Right [facility]: CareDose [facility]: Dose Right [facility]: Teradose 4D [facility]: [employer] RADIATION DOSE: CT Rad equipment meets quality standard of care and radiation dose reduction techniq ues were employed. CTDIvol: 53.2 mGy. DLP: 991 mGy-cm. mGy. LIMITATIONS: None. FINDINGS: VENTRICLES: Normal size and contour. CEREBRUM: No masses. No hemorrhage. No midline shift. No evidence for acute infarction. Normal gra y/white matter differentiation. No areas of low density in the white matter. CEREBELLUM: No masses. No hemorrhage. No alteration of density. No evidence for acute infarction. EXTRAAXIAL SPACES: No fluid collections. No masses. ORBITS AND GLOBE: No intra- or extraconal masses. Normal contour of globe without masses. CALVARIUM: No fracture. PARANASAL SINUSES: No fluid or mucosal thickening. SOFT TISSUES: No mass or hematoma. OTHER: No other significant finding. IMPRESSION: NORMAL BRAIN CT WITHOUT CONTRAST. EVIDENCE OF ACUTE STROKE: NO. COMMENT: Quality ID # [id number]: Final reports with documentation of one or more dose reduction techniques (e.g., Automated exposure control, adjustment of the mA and/or kV according to patient size, use of iterative reconstruction technique) TECHNICAL DOCUMENTATION: JOB ID: [id number] [employer]- All Rights Reserved Reading location - IP/workstation name: [email or web address]
[2019-01-12] MEDS ORDERED: DIPHENHYDRAMINE HCL 50 MG CAPSULE PO ONE (09:48)
[2019-01-12] MEDS ORDERED: KETOROLAC TROMETHAMINE 60 MG/2 ML SDV IM ONE (09:48)
[2019-01-12 10:44] LABS: ABSOLUTE EOSINOPHILS # (AUTO) 0.1 10^3/uL (0.0-0.6); ABSOLUTE LYMPHOCYTES (AUTO) 2.9 10^3/uL (0.5-4.7); ABSOLUTE MONOCYTES (AUTO) 0.6 10^3/uL (0.1-1.4); ABSOLUTE NEUT (AUTO) 5.3 10^3/uL (1.7-8.2); BASOPHILS % (AUTO) 0.4 % (0-2); HEMATOCRIT 45.2 % (36.0-47.0); HEMOGLOBIN 15.5 g/dL (12.0-15.5); LYMPHOCYTES % (AUTO) 32.5 % (13-45); MEAN CORPUSCULAR HEMOGLOBIN 32.5 pg (27.0-33.4); MEAN CORPUSCULAR HGB CONC 34.2 g/dL (32.0-36.0); MEAN CORPUSCULAR VOLUME 95 fl (80-97); MONOCYTES % (AUTO) 6.5 % (3-13); PLATELET COUNT 367 10^3/uL (150-450); RED BLOOD COUNT 4.76 10^6/uL (3.72-5.28); RED CELL DISTRIBUTION WIDTH 14.2 % (11.5-14.0); SEGMENTED NEUTROPHILS % (AUTO) 59.6 % (42-78); TOTAL CELLS COUNTED % (AUTO) 100 %; WHITE BLOOD COUNT 8.9 10^3/uL (4.0-10.5)
[2019-01-12 11:01] LABS: APPEARANCE,URINE SLIGHTLY-CLOUDY; BILIRUBIN,URINE NEGATIVE (NEGATIVE); COLOR,URINE YELLOW; GLUCOSE, URINE NEGATIVE (NEGATIVE); KETONES,URINE NEGATIVE (NEGATIVE); LEUKOCYTE ESTERASE,URINE MODERATE (NEGATIVE); NITRITE,URINE NEGATIVE (NEGATIVE); PROTEIN,URINE NEGATIVE (NEGATIVE); URINE SPECIFIC GRAVITY 1.018; UROBILINOGEN,URINE NEGATIVE mg/dL (<2.0)
[2019-01-12 11:08] LABS: ALANINE AMINOTRANSFERASE 19 U/L (9-52); ALBUMIN 4.8 g/dL (3.5-5.0); ALKALINE PHOSPHATASE 98 U/L (38-126); ANION GAP 8 (5-19); ASPARTATE AMINO TRANSFERASE 36 U/L (14-36); BILIRUBIN,DIRECT 0.3 mg/dL (0.0-0.4); BILIRUBIN,TOTAL 0.6 mg/dL (0.2-1.3); BLOOD UREA NITROGEN 15 mg/dL (7-20); CALCIUM 10.4 mg/dL (8.4-10.2); CARBON DIOXIDE 26 mmol/L (22-30); CHLORIDE 106 mmol/L (98-107); GLUCOSE 89 mg/dL (75-110); POTASSIUM 4.6 mmol/L (3.6-5.0); TOTAL PROTEIN 8.3 g/dL (6.3-8.2)
[2019-01-12 12:02] VITALS: BP 123/87
--- NOTE | 2019-01-12 14:45 | EKG REPORT ---
SEVERITY:- NORMAL ECG - SINUS RHYTHM : Confirmed by: Babita Caldwell MD 12-Jan-2019 14:44:57
== END 2019-01-12 12:02 | disposition home or self-care (01) ==
LOC: ER 07:47
DX: R51 Headache (principal); R42 Dizziness and giddiness; R68.83 Chills (without fever); H53.149 Visual discomfort, unspecified; F31.9 Bipolar disorder, unspecified; F41.9 Anxiety disorder, unspecified; F20.9 Schizophrenia, unspecified; Z79.899 Other long term (current) drug therapy; F17.210 Nicotine dependence, cigarettes, uncomplicated
CPT/HCPCS: 93005; 99284; 96372; 36415; 85025; 80053; 81001; 70450; 93010; J3490; J1885

== ENCOUNTER 2019-02-01 06:55 | Emergency (ER) | payer MEDICAID ==
[2019-02-01 07:06] VITALS: BP 119/79
[2019-02-01] MEDS ORDERED: KETOROLAC TROMETHAMINE 60 MG/2 ML SDV IM ONE (07:21)
--- NOTE | 2019-02-01 07:23 | ER Document Report ---
Entered by MORENITA BETTS SCRIBE 02/01/19 0721 Acting as scribe for:VIKY MONTERO MD ED General - General Chief Complaint: Shoulder Injury Stated Complaint: SHOULDER PAIN Time Seen by Provider: 02/01/19 07:12 Primary Care Provider: GET PICKERING DO [Primary Care Provider] - Follow up as needed Notes: Patient is a 58-year-old female presenting to the emergency department complaining of left shoulder pain. Patient states that on 01/31 she and her spouse were having intercourse, she was on top and hit her head on the headrest of the bed, and made impact with her left shoulder. Patient states that she has been experiencing pain since then. TRAVEL OUTSIDE OF THE [place] IN LAST 30 DAYS: No - Related Data Allergies/Adverse Reactions: No Known Allergies Allergy (Verified 01/12/19 07:49) Past Medical History - General Information source: Patient - Social History Smoking Status: Current Every Day Smoker Cigarette use (# per day): Yes Chew tobacco use (# tins/day): No Frequency of alcohol use: None Drug Abuse: None Family History: Reviewed & Not Pertinent Musculoskeletal Medical History: Reports Hx Arthritis Psychiatric Medical History: Reports: Hx Anxiety, Hx Bipolar Disorder, Hx Schizophrenia Past Surgical History: Reports: Hx Section Review of Systems - Review of Systems Constitutional: No symptoms reported EENT: No symptoms reported Cardiovascular: No symptoms reported Respiratory: No symptoms reported Gastrointestinal: No symptoms reported Genitourinary: No symptoms reported Female Genitourinary: No symptoms reported Musculoskeletal: No symptoms reported, Other - Left shoulder pain Skin: No symptoms reported Hematologic/Lymphatic: No symptoms reported Neurological/Psychological: No symptoms reported -: Yes All other systems reviewed and negative Physical Exam - Vital signs Vitals: Temp Pulse Resp BP Pulse Ox 98.1 F 79 18 119/79 99 02/01/19 06:56 02/01/19 06:56 02/01/19 06:56 02/01/19 06:56 02/01/19 06:56 - Notes Notes: Physical Exam: General: Alert, appears well. HEENT: Normocephalic. Atraumatic. PERRL. Extraocular movements intact. Oropharynx clear. Neck: Supple. Non-tender. Shoulders: Full ROM bilaterally. No crepitus present. Respiratory: No respiratory distress. Clear and equal breath sounds bilaterally. Cardiovascular: Regular rate and rhythm. Abdominal: Normal Inspection. Non-tender. No distension. Normal Bowel Sounds. Back: Non-tender. No deformity or step off. Extremities: Moves all four extremities. Upper extremities: Normal inspection. Normal ROM. Lower extremities: Normal inspection. No edema. Normal ROM. Neurological: Normal cognition. AAOx4. Normal speech. Psychological: Normal affect. Normal Mood. Skin: Warm. Dry. Normal color. Course - Re-evaluation Re-evalutation: 02/01/19 07:21 She has full range of motion with no induration erythema or crepitus of left shoulder. Right upper extremity shows no signs of trauma. She states that she hit her shoulder on the headboard while having sex on of this past week. She is requesting pain medication. Will provide shot of Toradol and instructed to use heating pad. She can use anti-inflammatories or Tylenol at home. 02/01/19 07:22 - Vital Signs Vital signs: Temp Pulse Resp BP Pulse Ox 98.1 F 79 18 119/79 99 02/01/19 06:56 02/01/19 06:56 02/01/19 06:56 02/01/19 06:56 02/01/19 06:56 Discharge - Discharge Clinical Impression: Left shoulder pain Qualifiers: Chronicity: acute Qualified Code(s): M25.512 - Pain in left shoulder Condition: Good Disposition: HOME, SELF-CARE Instructions: Pain Medication Injection ([facility]) Referrals: GET PICKERING DO [Primary Care Provider] - Follow up as needed I personally performed the services described in the documentation, reviewed and edited the documentation which was dictated to the scribe in my presence, and it accurately records my words and actions.
== END 2019-02-01 07:30 | disposition home or self-care (01) ==
LOC: ER 06:55
DX: M25.512 Pain in left shoulder (principal); W22.03XA Walked into furniture, initial encounter; F17.210 Nicotine dependence, cigarettes, uncomplicated
CPT/HCPCS: 96374; 99283; J1885

== ENCOUNTER 2019-03-30 07:27 | Day surgery (SDC) | payer MEDICAID ==
[2019-03-30] MEDS ORDERED: PROPOFOL INJ 200 MG/20 ML VIAL IV ONE ×2 (07:32→09:44)
[2019-03-30] MEDS ORDERED: GLYCOPYRROLATE INJ 0.4 MG/2 ML VIAL ONE (09:40)
[2019-03-30] MEDS ORDERED: ALBUTEROL SULFATE 0.083% NEB 2.5 MG/3 ML AMPUL NEB ONE (10:05)
[2019-03-30 10:08] VITALS: BP 100/70
--- NOTE | 2019-03-30 13:54 | Operative Report ---
Operative Report DATE OF SURGERY: 03/30/19 Operative Report: The risks, benefits and alternatives of the procedure including the risk of bleeding, perforation requiring surgery have been explained to the patient in detail and informed consent has been obtained. Patient is placed in a left, lateral decubital position. Timeout was called. Propofol medication is administered. Rectal examination is done which did not reveal any masses, tears or fissures. An Olympus videoscope was introduced into the patient's rectum. Scope was then carefully advanced all the way to the cecum. Cecum was identified by the usual anatomical landmarks including the ileocecal valve as well as the appendiceal office. Photodocumentation is obtained. Scope was then sequentially pulled back via the various segments of the colon including the ascending colon, hepatic flexure, transverse colon, splenic flexure, descending colon finding to the rectosigmoid portions of the colon. Retroflexion maneuver is performed. PREOPERATIVE DIAGNOSIS: Colorectal cancer screening POSTOPERATIVE DIAGNOSIS: Right colon inflammation status post biopsy. Internal hemorrhoids OPERATION: Colonoscopy with biopsy SURGEON: JAMILAH BOWERS ANESTHESIA: LMAC TISSUE REMOVED OR ALTERED: As noted above. COMPLICATIONS: None. ESTIMATED BLOOD LOSS: None. INTRAOPERATIVE FINDINGS: As noted above. PROCEDURE: Patient tolerated the procedure well. No immediate postprocedure complications are noted. Patient is discharged in good condition. Discharge date 03/30/2019. Discharge diet: Regular. Discharge activity: Regular. 2 to 3-week follow-up to discuss findings. Patient is instructed to call the office or proceed to the emergency room should there be any further proximal questions. Biopsies are -10-year surveillance colonoscopy.
== END 2019-03-30 10:15 | disposition home or self-care (01) ==
LOC: END 07:27
PROVIDERS: ATTEND Internal Medicine Gastroenterology
DX: Z12.11 Encounter for screening for malignant neoplasm of colon (principal); K52.9 Noninfective gastroenteritis and colitis, unspecified; K64.8 Other hemorrhoids; I10 Essential (primary) hypertension; F17.210 Nicotine dependence, cigarettes, uncomplicated
CPT/HCPCS: 45380; 88305 ×2; 94640; 00812; J2704; 812